=== PATIENT | female | born 1955 | race Two or more races ===

== ENCOUNTER 2017-07-22 23:34 | Inpatient (IN) | payer MEDICAID, OTHER ==
[~2017-07-22] VITALS: Ht 162.6 cm; Wt 84.0 kg
[~2017-07-22 23:34] MED LIST: ALBU8.5H3 INH; CETI10TA34 PO; GUAI118L94 PO; LEVO500T72 PO; PRED50TA PO; SIMV5TAB50 PO; [UNRECOGNIZED DRUG - OTHER]
[2017-07-22] MEDS ORDERED: ONDANSETRON 4 MG INJ IV STA (23:54)
[2017-07-22] MEDS ORDERED: morphine 4 MG/ML VIAL IV STA (23:54)
[2017-07-22] MEDS ORDERED: SOD CHLORIDE 0.9% 500 ML IV STA (23:54)
[2017-07-23 00:31] LABS: BASOPHILS % 0.2 % (0.0-2.0); EOSINOPHILS # 0.1 10^3/ul (0.0-0.5); EOSINOPHILS % 1.1 % (0.0-7.0); HEMATOCRIT 33.5 % (37.0-47.0); HEMOGLOBIN 11.6 g/dl (12.0-16.0); LYMPHOCYTES # 1.8 10^3/ul (0.8-2.9); LYMPHOCYTES % 41.4 % (15.0-51.0); MEAN CORPUSCULAR HEMOGLOBIN 31.9 pg (29.0-33.0); MEAN CORPUSCULAR HGB CONC 34.6 g/dl (32.0-37.0); MEAN PLATELET VOLUME 9.1 fl (7.4-10.4); MONOCYTE # 0.3 10^3/ul (0.3-0.9); MONOCYTES % 7.3 % (0.0-11.0); NEUTROPHIL # 2.2 10^3/ul (1.6-7.5); NEUTROPHILS % 49.8 % (39.0-77.0); PLATELET COUNT 154 10^3/UL (140-415); RED BLOOD COUNT 3.64 10^6/ul (4.20-5.40); RED CELL DISTRIBUTION WIDTH 13.7 % (11.5-14.5); WHITE BLOOD COUNT 4.4 10^3/ul (4.8-10.8)
[2017-07-23 00:53] LABS: ALBUMIN 4.4 g/dl (3.3-4.9); ALBUMIN/GLOBULIN RATIO 1.18; BILIRUBIN,INDIRECT 0.6 mg/dl (0-1.1); BILIRUBIN,TOTAL 0.6 mg/dl (0.2-1.3); CALCIUM 9.3 mg/dl (8.4-10.2); CREATININE 0.73 mg/dl (0.44-1.00); TOTAL PROTEIN 8.1 g/dl (6.1-8.1)
[2017-07-23 01:16] LABS: ADD UMIC YES; UR ASCORBIC ACID NEGATIVE (NEGATIVE); UR BACTERIA FEW /HPF (NONE SEEN); UR BILIRUBIN (Dip) NEGATIVE (NEGATIVE); UR BLOOD (Dip) 3+ mg/dL (NEGATIVE); UR BUDDING YEAST FEW /HPF (NONE SEEN); UR CLARITY TURBID (CLEAR); UR COLOR YELLOW (YELLOW); UR GLUCOSE (Dip) NEGATIVE (NEGATIVE); UR KETONES (Dip) NEGATIVE (NEGATIVE); UR LEUKOCYTE ESTERASE (Dip) 2+ Leu/ul (NEGATIVE); UR MUCUS FEW /HPF (NONE SEEN); UR NITRITE (Dip) NEGATIVE (NEGATIVE); UR RBC > 182 /HPF (0-5); UR SPECIFIC GRAVITY (Dip) 1.015 (1.003-1.030); UR TOTAL PROTEIN (Dip) 2+ mg/dl (NEGATIVE); UR UROBILINOGEN (Dip) NEGATIVE (NEGATIVE)
--- NOTE | 2017-07-23 01:39 | RADRPT ---
PROCEDURE: Renal US. CLINICAL INDICATION: Flank pain. TECHNIQUE: Multiple sonographic images of the kidneys and urinary bladder were obtained. The imag es were reviewed on a PACS workstation. COMPARISON: No prior studies are available for comparison. FINDINGS: The kidneys are well visualized. The right kidney measures 11.4 x 4.3 x 4.1 cm. There is no right hy dronephrosis per The left kidney measures 10.4 x 4.4 x 4.6 cm. There is mild left hydronephrosis wit h a left sided nephrostomy tube in place. A 5 mm nonobstructing stone is identified in the upper darlene e of the left kidney. The urinary bladder is unremarkable. IMPRESSION: 1. Mild left hydronephrosis with a left sided nephrostomy tube in place. 2. 5 mm nonobstructing left renal stone. 3. Normal appearance of the right kidney and urinary bladder. RPTAT: HTAR .Akhil Ceja MD, Date Time Electronically viewed and signed by .Akhil Ceja MD, on 07/23/2017 01:38 .R/
--- NOTE | 2017-07-23 02:29 | ERA ---
ER Documentation Chief Complaint Date/Time DATE: 07/23/17 TIME: 02:28 Chief Complaint flank pain with nephrostomy drain HPI 61-year-old female with history of obstructive urinary stone with nephrostomy tube in place comes in with flank pain on the side of her nephrostomy tube. Patient contacted her urologist Dr. Coyle and was told to come to [facility] for further evaluation management and possible admission. Flank pain started yesterday and is progressively worse. It was started off is mild and is now moderate in intensity. Mild associated nausea but no vomiting. No fevers no chills. No other current complaints. ROS All systems reviewed and are negative except as per history of present illness. Medications Home Meds Active Scripts Levofloxacin* (Levaquin*) 500 Mg Tablet, 500 MG PO DAILY for 7 Days, TAB Prov:DIANA CARLSON DIRECTOR OF [employer]UNTEER SERVICES 02/20/16 Prednisone* (Prednisone*) 50 Mg Tablet, 50 MG PO DAILY for 5 Days, TAB Prov:DIANA CARLSON NP 02/20/16 Cetirizine Hcl* (Cetirizine Hcl*) 10 Mg Tab.chew, 10 MG PO DAILY, #30 TAB Prov:DIANA CARLSON NP 02/20/16 Guaifenesin-Codeine Phosphate* (Guaifenesin* with Codeine Liq) 120 Ml Liquid, 5 ML PO Q4H for COUGH, #60 ML Prov:DINAA CARLSON NP 02/20/16 Albuterol Sulfate* (Proair HFA*) 8.5 Gm Hfa.aer.ad, 2 PUFF INH Q4H Y for WHEEZING AND SOB, #1 INHALER Prov:DIANA CARLSON NP 02/20/16 Reported Medications Simvastatin* (Simvastatin*) Unknown Strength Tablet, PO QHS, #30 TAB 02/19/16 [Hypothryoid] No Conflict Check 11/04/11 Allergies Allergies: Coded Allergies: No Known Allergy (Unverified , 07/23/17) PMhx/Soc Anesthesia Reaction: No Hx Neurological Disorder: No Hx Respiratory Disorders: No Hx Cardiac Disorders: Yes (high cholesterol, recent mi ) Hx Psychiatric Problems: No Hx Miscellaneous Medical Probl: No Hx Alcohol Use: No Hx Substance Use: No Hx Tobacco Use: No Smoking Status: Never smoker Physical Exam Vitals Vital Signs Date Time Temp Pulse Resp B/P Pulse Ox O2 Delivery O2 Flow Rate FiO2 07/22/17 23:40 98.3 83 20 111/69 95 Physical Exam Const: [] Head: Atraumatic Eyes: Normal Conjunctiva ENT: Normal External Ears, Nose and Mouth. Neck: Full range of motion..~ No meningismus. Resp: Clear to auscultation bilaterally Cardio: Regular rate and rhythm, no murmurs Abd: Soft, non tender, non distended. Normal bowel sounds Skin: No petechiae or rashes Back: No midline or flank tenderness Ext: No cyanosis, or edema Neur: Awake and alert Psych: Normal Mood and Affect Result Diagram: 07/23/17201607/23/172016 Results 24 hrs Laboratory Tests Test 07/23/17 00:00 07/23/17 00:01 Urine Color YELLOW Urine Clarity TURBID Urine pH 5.0 Urine Specific [place] 1.015 Urine Ketones NEGATIVEmg/dL Urine Nitrite NEGATIVEmg/dL Urine Bilirubin NEGATIVEmg/dL Urine Urobilinogen NEGATIVEmg/dL Urine Leukocyte Esterase 2+Kinsey/ul Urine Microscopic RBC > 182/HPF Urine Microscopic WBC 43/HPF Urine Bacteria FEW/HPF Urine Mucus FEW/HPF Urine Yeast (Budding) FEW/HPF Urine Hemoglobin 3+mg/dL Urine Glucose NEGATIVEmg/dL Urine Total Protein 2+mg/dl White Blood Count 4.410^3/ul Red Blood Count 3.6410^6/ul Hemoglobin 11.6g/dl Hematocrit 33.5% Mean Corpuscular Volume 92.0fl Mean Corpuscular Hemoglobin 31.9pg Mean Corpuscular Hemoglobin Concent 34.6g/dl Red Cell Distribution Width 13.7% Platelet Count 78313^3/UL Mean Platelet Volume 9.1fl Neutrophils % 49.8% Lymphocytes % 41.4% Monocytes % 7.3% Eosinophils % 1.1% Basophils % 0.2% Nucleated Red Blood Cells % 0.0/100WBC Neutrophils # 2.210^3/ul Lymphocytes # 1.810^3/ul Monocytes # 0.310^3/ul Eosinophils # 0.110^3/ul Basophils # 0.010^3/ul Nucleated Red Blood Cells # 0.010^3/ul Sodium Level 143mmol/L Potassium Level 4.0mmol/L Chloride Level 106mmol/L Carbon Dioxide Level 28mmol/L Anion Gap 13 Blood Urea Nitrogen 19mg/dl Creatinine 0.73mg/dl Glucose Level 117mg/dl Calcium Level 9.3mg/dl Total Bilirubin 0.6mg/dl Direct Bilirubin 0.00mg/dl Indirect Bilirubin 0.6mg/dl Aspartate Amino Transf (AST/SGOT) 20IU/L Alanine Aminotransferase (ALT/SGPT) 30IU/L Alkaline Phosphatase 90IU/L Total Protein 8.1g/dl Albumin 4.4g/dl Globulin 3.70g/dl Albumin/Globulin Ratio 1.18 Lipase 70U/L Current Medications Medications (Trade) Dose Ordered Sig/Renaldo Route PRN Reason Start Time Stop Time Status Last Admin Dose Admin Sodium Chloride (NS) 500 ml @ 500 mls/hr Q1H STAT IV 07/22/17 23:54 07/23/17 00:53 DC 07/23/17 00:10 Morphine Sulfate (morphine) 4 mg ONCE STAT IV 07/22/17 23:54 07/22/17 23:55 DC 07/23/17 00:09 Ondansetron HCl 4 mg 4 mg ONCE STAT IV 07/22/17 23:54 07/22/17 23:55 DC 07/23/17 00:10 Ceftriaxone Sodium (Rocephin) 50 ml @ 100 mls/hr ONCE ONCE IVPB 07/23/17 02:30 07/23/17 02:59 Procedures/MDM Medical decision-makin-year-old female nephrostomy tube and obvious infection in urine from nephrostomy tube. Started on Rocephin pending urine cultures. Pending patient will be admitted to hospitalist with urology consult. Departure Diagnosis: Primary Impression: Flank pain Condition: Serious GUZMAN SALCEDO Jul 23, 2017 02:29
[2017-07-23] MEDS ORDERED: CEFTRIAXONE 1 GM/50 ML (PMX) 50 ML IVPB ONE (02:30)
[2017-07-23] MEDS ORDERED: THY15 PO (02:32)
[2017-07-23] MEDS ORDERED: AMLO-147 PO (02:47)
[2017-07-23] MEDS ORDERED: LORA10TA3 PO (02:47)
[2017-07-23] MEDS ORDERED: TAMS0.4C2 PO (02:47)
[2017-07-23] MEDS ORDERED: FINA5TAB4 PO (02:47)
[2017-07-23] MEDS ORDERED: ASPI-664 PO (02:47)
[2017-07-23] MEDS ORDERED: ATOR80TA75 PO (02:47)
[2017-07-23 03:20] VITALS: PULSE 82; TEMP 98.3
[2017-07-23 03:44] VITALS: Ht 162.6 cm; Wt 84.0 kg
[2017-07-23] MEDS ORDERED: ACETAMINOPHEN 325 MG TAB PO PRN (06:00)
[2017-07-23] MEDS ORDERED: ONDANSETRON 4 MG INJ IV PRN (06:00)
[2017-07-23] MEDS ORDERED: NACL 0.9% 3 ML SYG IV SCH (06:00)
[2017-07-23] MEDS ORDERED: HYDROCODONE/APAP (5/325) TAB PO PRN ×2 (06:00)
--- NOTE | 2017-07-23 06:02 | HP ---
Date/Time of Note Date/Time of Note DATE: 07/23/17 TIME: 05:51 Assessment/Plan VTE Prophylaxis VTE Prophylaxis Intervention: SCD's Lines/Catheters IV [facility] Saline Lock Assessment/Plan Chief Complaint/Hosp Course This is a 61-year-old female being admitted to the [facility] floor for: #1 complicated urinary tract infection: Renal ultrasound shows left hydronephrosis and a urinalysis is positive for urinary tract infection. At the current time will treat with Levaquin IV. She received ceftriaxone in the ED. Will obtain urine culture. #2 nephrolithiasis: 5 mm nonobstructing kidney stone in the left kidney for renal ultrasound.. Patient currently has nephrostomy tube in place will contact urology for further management. Continue Flomax and finasteride. #3 hypertension: Stable we will continue home medications #4 hypothyroidism: We will check a TSH level. Patient does not recall her home dose will need to confirm with her daughter in the a.m. #5 hyperlipidemia: Continue statin. #6 DVT GI prophylaxis: SCDs, acid mariely Further treatment strategy will be implemented as per the clinical course Problems: HPI/ROS Admit Date/Time Admit Date/Time Jul 23, 2017 at 02:35 Hx of Present Illness Chief complaint: Left flank pain This is a 61-year-old female with history of obstructive urinary stone with nephrostomy tube in place comes in with flank pain on the side of her nephrostomy tube. Patient contacted her urologist Dr. Coyle and was told to come to [facility] for further evaluation management and possible admission. Flank pain started yesterday and is progressively worse. It was started off is mild and is now moderate in intensity. Mild associated nausea but no vomiting. No fevers no chills. No other current complaints. Allergies: NKDA Medications: See DEC ROS Const: As Per HPI Eyes : No pain discharge or redness or change in visual acuity ENT: No pain, sore throat, congestion, congestion, dysphagia or discharge Respiratory: No shortness of breath, cough, sputum, wheezing, or pleuritic pain Cardiovascular: No chest pain, palpitation, PND, or edema GI : no change in appetite, abdominal pain, nausea, vomiting, diarrhea, constipation, or change in the color his stool Genitourinary: As per HPI Musculoskeletal: No joint pain, back pain, neck pain, restricted range of motion in neck or joints Skin: No rash, bruising or hives Neuro: No headache, dizziness, syncope, seizure, focal weakness Endocrine: No polyuria, polydipsia, temperature intolerance Psych: No hallucination, depression, anxiety or suicidal ideation PMH/Family/Social Past Medical History Kidney stones, hypertension, hypothyroidism, hyperlipidemia Past Surgical History Left nephrostomy tube Family History Significant Family History: other (Kidney stones: Mom) Social History Alcohol Use: none Smoking Status: Never smoker Drug Use: none Exam/Review of Systems Vital Signs Vitals Vital Signs Date Time Temp Pulse Resp B/P Pulse Ox O2 Delivery O2 Flow Rate FiO2 07/23/17 03:20 98.3 82 20 124/81 98 Room Air Exam Exam General: Patient is well-developed well-nourished The patient is alert oriented -3 lying comfortably in bed. HEENT: Atraumatic, normocephalic. The pupils are equal, round and reactive. Extraocular motor are intact Neck: Supple with full range of motion. No rigidity or meningismus Chest: Nontender Lungs: Clear to auscultation bilaterally no crackles rales or wheezing Heart: Normal S1-S2, Regular rhythm and rate. No murmur, S3, or S4 Abdomen: Soft , nontender, nondistended , bowel sounds are present. No guarding no rebound tenderness , No masses or organomegaly. No costovertebral temporal angle mass Extremities: Normal to inspection, no edema no cyanosis Neurologic: Normal mental status, speech normal, cranial nerves II through XII are intact, motor and sensory are intact, no focal weakness Genitourinary: Left flank pain tenderness to palpation, nephrostomy tube draining adequately with no fluid extravasation from the insertion site. Urine appears mildly cloudy Additional Comments PROCEDURE: Renal US. CLINICAL INDICATION: Flank pain. TECHNIQUE: Multiple sonographic images of the kidneys and urinary bladder were obtained. The images were reviewed on a PACS workstation. COMPARISON: No prior studies are available for comparison. FINDINGS: The kidneys are well visualized. The right kidney measures 11.4 x 4.3 x 4.1 cm. There is no right hydronephrosis per The left kidney measures 10.4 x 4.4 x 4.6 cm. There is mild left hydronephrosis with a left sided nephrostomy tube in place. A 5 mm nonobstructing stone is identified in the upper pole of the left kidney. The urinary bladder is unremarkable. IMPRESSION: 1. Mild left hydronephrosis with a left sided nephrostomy tube in place. 2. 5 mm nonobstructing left renal stone. 3. Normal appearance of the right kidney and urinary bladder. RPTAT: HTAR .Akhil Ceja MD, MD Date Time Electronically viewed and signed by .Akhil Ceja MD, on 07/23/2017 01:38 .R/ CC: GUZMAN SALCEDO Labs Result Diagram: 07/23/17 0001 07/23/17 0001 AVI ALVARADO Jul 23, 2017 06:02
[2017-07-23] MEDS: SOD CHLORIDE 0.9% 1,000 ML IV SCH ×2 (06:14→20:44)
[2017-07-23 08:13] VITALS: BP 100/56; RESP 16
[2017-07-23] MEDS: LEVOFLOXACIN 750MG/D5W (PMX) 150 ML IVPB SCH (08:59)
[2017-07-23] MEDS: TAMSULOSIN (SR) 0.4 MG CAP PO SCH (09:00)
[2017-07-23] MEDS: LORATADINE 10 MG TAB PO SCH (09:00)
[2017-07-23] MEDS: FAMOTIDINE 20 MG TAB PO SCH ×2 (09:00→20:44)
[2017-07-23] MEDS: ASPIRIN (EC) 81 MG TAB PO SCH (09:00)
[2017-07-23] MEDS ORDERED: NON-FORMULARY/PATIENT OWN MED (Cetirizine Hcl* 10 MG) PO SCH (09:00)
[2017-07-23] MEDS: FINASTERIDE 5 MG TAB PO SCH (09:00)
[2017-07-23] MEDS: AMLODIPINE 10 MG TAB PO SCH (09:00)
[2017-07-23] MEDS ORDERED: IBUPROFEN 600 MG TAB PO ONE (13:30)
[2017-07-23 14:22] VITALS: BP 98/62; RESP 16
--- NOTE | 2017-07-23 14:26 | RADRPT ---
PROCEDURE: XR Abdomen. CLINICAL INDICATION: Abdominal pain TECHNIQUE: Supine and upright views of the abdomen were obtained. COMPARISON: None. FINDINGS: The bowel gas pattern is normal. There is no evidence of obstruction. The large bowel is stool-fille d. A left nephrostomy tube is seen. Cholecystectomy clips are identified. No free intraperitoneal ai r is seen. There are no abnormal calcifications overlying the urinary tracts. The osseous structure s are unremarkable. IMPRESSION: Nonobstructive bowel gas pattern. Left nephrostomy tube identified. RPTAT: HPNM Physician Azam Date Time Electronically viewed and signed by Physician Azam on 07/23/2017 14:25 /
--- NOTE | 2017-07-23 16:54 | CONS ---
Date/Time of Note Date/Time of Note DATE: 07/23/17 TIME: 16:34 Thank you for asking me to participate in this patient's care. 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 She has been on thyroid replacement therapy for the past 5 years. Initially levothyroxine followed by Sharmila meek. Her Most recent TSH is at 15. Additional Assessment/Plan Will dose thyroid replacement based on weight. Will increase dose up to 88mcg. Consultation Date/Type/Reason Admit Date/Time Jul 23, 2017 at 02:35 Date of Consultation: Jul 23, 2017 Type of Consultation: Endocrine Reason for Consultation Thyroid management Referring Provider: AVI ALVARADO Hx of Present Illness This is a 61-year-old female with a history of having an obstructive urinary stone with nephrostomy tube in placement. She presents to [facility] with flank pain on the side of her nephrostomy tube. She is admitted for further work up. I 've been asked to assist in management of her thyroid function. 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 Initially LT4 replacement then LT3/LT4 replacement back and forth. She has been followed at [facility] up until the past year. She has been taking a form of "leftover" thyroid replacement (her las dose being yesterday). Her TSH in hospital has been found to be 15. Family at bedside. [place] speaking woman. ROS and history obtained with assistance from daughter Eyes: no complaints ENT: no complaints Respiratory: no complaints Cardiovascular: no complaints Gastrointestinal: other, pain (left flank pain) Genitourinary: flank pain Musculoskeletal: no complaints Skin: no complaints Neurologic: no complaints Endocrine: no complaints Lymphatic: no complaints Psychological: no complaints Immunologic: no complaints Past Medical History Medical History: other (Toxic nodular goiter, surgical induced hypothyroidism, oligoastrocytoma of the left frontal lobe, nephrolithiasis) Past Surgical History Past Surgical Hx: no surgical history (partial thyroidectomy), other (Partial thyroidecttomy, craniotomy without tumor resection, left nephrostomy tube) Family History Significant Family History: other (nephrolithiasis) Social History Alcohol Use: none Smoking Status: Never smoker Drug Use: none Other Social History [place] born. Lives with . Has 2 daughters. Exam/Review of Systems Vital Signs Vitals Vital Signs Date Time Temp Pulse Resp B/P Pulse Ox O2 Delivery O2 Flow Rate FiO2 07/23/17 14:22 98.1 71 16 98/62 91 07/23/17 03:20 Room Air Exam Constitutional: alert, obese, oriented, well developed Head: normocephalic Eyes: EOMI, PERRL, nl conjunctiva Neck: supple Respiratory: clear to auscultation, normal air movement Cardiovascular: nl pulses, regular rate and rhythm Gastrointestinal: non-tender, soft Genitourinary - Female: nl adnexae Musculoskeletal: nl extremities to inspection Extremities: normal pulses Neurological: nl mental status, nl speech, nl strength Results Labs reviewed Result Diagram: 07/23/17 0001 07/23/17 0001 Results 24 hrs Laboratory Tests Test 07/23/17 00:00 07/23/17 00:01 07/23/17 08:27 Urine Color YELLOW Urine Clarity TURBID A Urine pH 5.0 Urine Specific [place] 1.015 Urine Ketones NEGATIVE Urine Nitrite NEGATIVE Urine Bilirubin NEGATIVE Urine Urobilinogen NEGATIVE Urine Leukocyte Esterase 2+ H Urine Microscopic RBC > 182 H Urine Microscopic WBC 43 H Urine Bacteria FEW A Urine Mucus FEW A Urine Yeast (Budding) FEW A Urine Hemoglobin 3+ H Urine Glucose NEGATIVE Urine Total Protein 2+ H White Blood Count 4.4 #L Red Blood Count 3.64 L Hemoglobin 11.6 L Hematocrit 33.5 L Mean Corpuscular Volume 92.0 Mean Corpuscular Hemoglobin 31.9 Mean Corpuscular Hemoglobin Concent 34.6 Red Cell Distribution Width 13.7 Platelet Count 154 Mean Platelet Volume 9.1 # Neutrophils % 49.8 Lymphocytes % 41.4 Monocytes % 7.3 Eosinophils % 1.1 Basophils % 0.2 Nucleated Red Blood Cells % 0.0 Neutrophils # 2.2 Lymphocytes # 1.8 Monocytes # 0.3 Eosinophils # 0.1 Basophils # 0.0 Nucleated Red Blood Cells # 0.0 Sodium Level 143 Potassium Level 4.0 Chloride Level 106 Carbon Dioxide Level 28 Anion Gap 13 Blood Urea Nitrogen 19 Creatinine 0.73 Glucose Level 117 Calcium Level 9.3 Total Bilirubin 0.6 Direct Bilirubin 0.00 Indirect Bilirubin 0.6 Aspartate Amino Transf (AST/SGOT) 20 Alanine Aminotransferase (ALT/SGPT) 30 Alkaline Phosphatase 90 Total Protein 8.1 Albumin 4.4 Globulin 3.70 H Albumin/Globulin Ratio 1.18 Lipase 70 Free Thyroxine 0.51 L Hemoglobin A1c 5.2 Magnesium Level 2.0 Thyroid Stimulating Hormone (TSH) 15.000 H Medications Medications Current Medications Sodium Chloride (NS) 1,000 ml @ 70 mls/hr [id number] IV Last administered on 07/23 06:14; Admin Dose 70 MLS/HR; Start 07/23/17 at 05:53 Ondansetron HCl (Zofran Inj) 4 mg Q6H PRN IV NAUSEA AND/OR VOMITING; Start 07/23/17 at 06:00 Acetaminophen (Tylenol Tab) 650 mg Q6H PRN PO PAIN LEVEL 1-3 OR FEVER Last administered on 07/23/17 09:11; Admin Dose 650 MG; Start 07/23/17 at 06:00 Acetaminophen/ Hydrocodone Bitart (Spelter (5/325)) 1 tab Q6H PRN PO MODERATE PAIN LEVEL 4-6; Start 07/23/17 at 06:00 Acetaminophen/ Hydrocodone Bitart (Spelter (5/325)) 2 tab Q6H PRN PO SEVERE PAIN LEVEL 7-10; Start 07/23/17 at 06:00 Famotidine (Pepcid) 20 mg Q12 PO Last administered on 07/23/17 09:00; Admin Dose 20 MG; Start 07/23/17 at 09:00 Amlodipine Besylate (Norvasc) 10 mg DAILY PO Last administered on 07/23/17 09: 00; Admin Dose 10 MG; Start 07/23/17 at 09:00 Aspirin (Halfprin) 81 mg DAILY PO Last administered on 07/23/17 09:00; Admin Dose 81 MG; Start 07/23/17 at 09:00 Atorvastatin Calcium (Lipitor) 80 mg QHS PO ; Start 07/23/17 at 21:00 Finasteride (Proscar) 5 mg DAILY PO Last administered on 07/23/17 09:00; Admin Dose 5 MG; Start 07/23/17 at 09:00 Loratadine (Claritin) 10 mg DAILY PO Last administered on 07/23/17 09:00; Admin Dose 10 MG; Start 07/23/17 at 09:00 Tamsulosin HCl 0.4 mg 0.4 mg DAILY PO Last administered on 07/23/17 09:00; Admin Dose 0.4 MG; Start 07/23/17 at 09:00 Levofloxacin/ Dextrose (Levaquin 750 Mg/ D5W 150 ml (Pmx)) 150 ml @ 100 mls/hr Q24H IVPB Last administered on 07/23/17 08:59; Admin Dose 100 MLS/HR; Start 07/23/17 at 06:00 Levothyroxine Sodium (Synthroid) 50 mcg DAILY@06 PO ; Start 07/24/17 at 06:00 RONALD FRANCOIS MD Jul 23, 2017 16:47
[2017-07-23 19:50] VITALS: BP 121/70; RESP 18
[2017-07-23] MEDS: ATORVASTATIN 80 MG TAB PO SCH (20:44)
--- NOTE | 2017-07-23 20:52 | HP ---
DATE OF ADMISSION: 07/23/2017 REQUESTING PHYSICIAN: Erickson Villagomez MD HISTORY OF PRESENT ILLNESS: This patient is a 61-year-old female who is known to me. I have seen her in the office before and I was planning to admit her as an outpatient for cystoscopy and left ureteropyeloscopy. Initially, the patient had presented to another hospital a few weeks back and she was septic at that time, and that was because of a stone at the left ureteropelvic junction causing her obstruction and septicemia. Because of that, the patient had a nephrostomy tube put in and she was treated with antibiotic and when she was stable she was sent home. Patient was referred to me after that and at the time I saw her I did a KUB and could not see the stone on the KUB. Therefore, I ordered a CT scan of the abdomen and pelvis to see if we could see the stone. On the CT scan of the abdomen and pelvis, the radiologist thought he sees a stone in the left kidney next to the nephrostomy tube. However, I reviewed the x- rays with him. He was not sure of the findings. Therefore, I talked to the patient and her daughter, and we were planning on doing a cystoscopy and ureteroscopy and try to see in the kidney if we could see the stone and then take it out. However, the patient has been having pain from the nephrostomy and she was calling me almost every day in the past few days complaining of the pain. I told her basically that we are just awaiting for the authorization, however, as the pain persisted, I told her therefore if she has continuous pain and she is not getting relief, therefore it is better that she goes to the emergency room and then be admitted and then we could take care of her stone and the nephrostomy tube while she is in the hospital. So last night, she presented to the emergency room because of the pain. She did have a renal ultrasound and renal ultrasound was reported as they see a 5 mm stone in the upper pole of the left kidney. Again, I had her repeat a KUB today and we cannot see the stone on the plain film. 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 The patient also has a partial thyroidectomy, and it causing her to be hypothyroid, and she is on thyroid replacement therapy. She does not smoke, does not drink any alcohol, and there is no history of drug abuse. PHYSICAL EXAMINATION: GENERAL: Reveals an elderly female who is presently in no acute distress. She is reasonably comfortable. VITAL SIGNS: Her temperature is 97.9, pulse is 70, respirations 16, blood pressure 100/56. NECK: Supple. CHEST: Normal. ABDOMEN: Soft. She does have tenderness in the left side and tenderness around the nephrostomy tube which is draining clear urine. EXTREMITIES: Normal. LABORATORY DATA: Her CBC shows a white count of 4.4, hemoglobin 11.6, hematocrit 33.5, platelet count is 154,000. BUN 19, creatinine 0.73. Electrolytes are normal. The urine culture, no growth after 24 hours, but that urine culture is a voided urine not from the nephrostomy tube. IMPRESSION: History of left renal stone at the left ureteropelvic junction causing obstruction, hydronephrosis and septicemia. Patient is status post left nephrostomy tube insertion. PLAN: Plan is to do a cystoscopy and do left ureteroscopy and pyeloscopy, laser lithotripsy, and put a JJ stent on the left side, and then take the nephrostomy tube out. If I am able to go up the ureter and do the ureteroscopy, then will try to get the stone. If I am not able to go up the ureter because the ureter is too narrowed, then we will put a JJ stent, allow the JJ stent to dilate the ureter and a few weeks later bring her back in and do the ureteroscopy, and we will remove the nephrostomy tube as that is bothering her. Also, I was hoping that if we were able to see the stone on plain films since it is a small stone, one could do extracorporeal shockwave lithotripsy but yet I could not see the stone on the plain film. Therefore, decided to do the ureteroscopy and pyeloscopy and see if we could visually see the stone and take care of it. I have explained all of these findings to her, her family, her daughter who was at her bedside, and showed them the pictures as well. I explained to them what we can do and what the potential result could be, the benefits, risks, and the possible need for multiple procedures. They all understood and she is agreeable to proceed. She is scheduled for tomorrow at 5:30 p.m. Dictated By: Victor M Mckeon MD /nirmal/lorraine /Document#: [id number] MTDD
[2017-07-24 02:31] VITALS: BP 99/55; RESP 20
[2017-07-24] MEDS: LEVOFLOXACIN 750MG/D5W (PMX) 150 ML IVPB SCH (05:51)
[2017-07-24] MEDS: LEVOTHYROXINE 88 MCG TAB PO SCH (05:52)
[2017-07-24] MEDS ORDERED: LEVOTHYROXINE 50 MCG TAB PO SCH (06:00)
[2017-07-24 06:12] LABS: BASOPHILS % 0.3 % (0.0-2.0); EOSINOPHILS # 0.1 10^3/ul (0.0-0.5); HEMATOCRIT 32.6 % (37.0-47.0); LYMPHOCYTES # 1.5 10^3/ul (0.8-2.9); LYMPHOCYTES % 42.9 % (15.0-51.0); MEAN CORPUSCULAR HEMOGLOBIN 31.7 pg (29.0-33.0); MEAN CORPUSCULAR HGB CONC 33.7 g/dl (32.0-37.0); MEAN CORPUSCULAR VOLUME 93.9 fl (82.0-101.0); MEAN PLATELET VOLUME 9.2 fl (7.4-10.4); MONOCYTE # 0.2 10^3/ul (0.3-0.9); MONOCYTES % 5.7 % (0.0-11.0); NEUTROPHIL # 1.7 10^3/ul (1.6-7.5); NEUTROPHILS % 48.8 % (39.0-77.0); PLATELET COUNT 142 10^3/UL (140-415); RED BLOOD COUNT 3.47 10^6/ul (4.20-5.40); RED CELL DISTRIBUTION WIDTH 13.6 % (11.5-14.5); WHITE BLOOD COUNT 3.5 10^3/ul (4.8-10.8)
[2017-07-24 06:33] LABS: PROTIME 13.2 Sec (12.2-14.2)
[2017-07-24 06:34] LABS: PARTIAL THROMBOPLASTIN TIME 28.5 Sec (25.0-35.0)
[2017-07-24 06:48] LABS: PHOSPHORUS 4.5 mg/dl (2.5-4.9)
[2017-07-24 06:49] LABS: ALBUMIN 3.9 g/dl (3.3-4.9); ALBUMIN/GLOBULIN RATIO 1.25; BILIRUBIN,INDIRECT 0.6 mg/dl (0-1.1); BILIRUBIN,TOTAL 0.6 mg/dl (0.2-1.3); CALCIUM 8.8 mg/dl (8.4-10.2); CREATININE 0.82 mg/dl (0.44-1.00); POTASSIUM 4.1 mmol/L (3.5-5.1)
--- NOTE | 2017-07-24 07:36 | RADRPT ---
PROCEDURE: XR Chest. CLINICAL INDICATION: Preop TECHNIQUE: AP Portable chest. COMPARISON: 02/19/2016 FINDINGS: There is breast artifact. The cardiac silhouette is enlarged. The aortic arch is calcified. The left costophrenic angle is obs cured by overlying soft tissue. Linear scarring or atelectasis is seen in the left lower lung. The osseous structures are intact. IMPRESSION: Left lower lobe linear scarring or atelectasis. Cardiomegaly. Aortic atherosclerosis. Physician Alonzo Date Time Electronically viewed and signed by Ruth Medley Physician on 07/24/2017 07:36 CS/
[2017-07-24 07:39] VITALS: BP 117/71; RESP 18
[2017-07-24] MEDS: LORATADINE 10 MG TAB PO SCH (08:27)
[2017-07-24] MEDS: TAMSULOSIN (SR) 0.4 MG CAP PO SCH (08:27)
[2017-07-24] MEDS: ASPIRIN (EC) 81 MG TAB PO SCH (08:28)
[2017-07-24] MEDS: AMLODIPINE 10 MG TAB PO SCH (08:28)
[2017-07-24] MEDS: FAMOTIDINE 20 MG TAB PO SCH ×2 (08:28→21:37)
[2017-07-24] MEDS: FINASTERIDE 5 MG TAB PO SCH (08:29)
--- NOTE | 2017-07-24 09:43 | PN ---
Date/Time of Note Date/Time of Note DATE: 07/24/17 TIME: 09:40 Assessment/Plan VTE Prophylaxis VTE Prophylaxis Intervention: SCD's Lines/Catheters IV C[facility]ter Type (from [facility] Peripheral IV Assessment/Plan Chief Complaint/Hosp Course 1. Nephrolithiasis. Renal ultrasound showing 5 mm nonobstructing kidney stone. The patient already has a left nephrostomy tube in place. The patient is scheduled for a cystoscopy with possible laser lithotripsy and insertion of a left ureteral JJ stent with removal of left nephrostomy tube. 2. Positive urinalysis. Urine cultures negative so far. On antibiotics as per Urology recommendations. 3. Hypothyroidism. Continue Synthroid. Endocrinology following the patient. 4. 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 5. Dyslipidemia. Continue statins. 6. Essential hypertension. Continue antihypertensives. 7. Fluids, electrolytes, and nutrition. N.p.o. for procedure. Continue IV hydration. 8. DVT prophylaxis. Bilateral sequential compression devices. 9. Plan. Await urological intervention. Continue IV fluids. Continue antibiotics. Case discussed with Dr. Martin. Problems: Subjective 24 Hr Interval Summary Free Text/Dictation Denies any pain at the nephrostomy site. Remains afebrile. Exam/Review of Systems Vital Signs Vitals Vital Signs Date Time Temp Pulse Resp B/P Pulse Ox O2 Delivery O2 Flow Rate FiO2 07/24/17 07:39 98.5 86 18 117/71 96 07/23/17 03:20 Room Air Intake and Output 07/23/17 07/23/17 07/24/17 15:00 23:00 07:00 Intake Total 2270 ml 1030 ml Balance 2270 ml 1030 ml Exam General: Obese 61 year-old female lying in bed in no apparent distress. HEENT: Normocephalic, atraumatic. Eyes: Anicteric sclerae, conjunctivae clear. ENT: Nasal septum midline, oral mucosa moist. Neck supple, no JVD noticed. Respiratory: Bilaterally clear breath sounds. No use of accessory muscles of respiration. No adventitious breath sounds. Cardiovascular: S1, S2 heard. No murmurs or gallops. Abdomen: Soft, nontender, and nondistended. Bowel sounds positive in all 4 quadrants. Genitourinary: Left flank nephrostomy. Extremities: No cyanosis, no clubbing, no edema. Peripheral pulses palpable. Neurologic: Cranial nerves II through XII grossly intact. The patient is awake, alert, and oriented. Skin: Normal skin turgor. No skin rashes. Results Result Diagram: 07/24/17 0540 07/24/17 0541 Results 24 hrs Laboratory Tests Test 07/24/17 05:40 07/24/17 05:41 White Blood Count 3.5 #L Red Blood Count 3.47 L Hemoglobin 11.0 L Hematocrit 32.6 L Mean Corpuscular Volume 93.9 Mean Corpuscular Hemoglobin 31.7 Mean Corpuscular Hemoglobin Concent 33.7 Red Cell Distribution Width 13.6 Platelet Count 142 Mean Platelet Volume 9.2 Neutrophils % 48.8 Lymphocytes % 42.9 Monocytes % 5.7 Eosinophils % 2.0 Basophils % 0.3 Nucleated Red Blood Cells % 0.0 Neutrophils # 1.7 Lymphocytes # 1.5 Monocytes # 0.2 L Eosinophils # 0.1 Basophils # 0.0 Nucleated Red Blood Cells # 0.0 Phosphorus Level 4.5 Magnesium Level 2.0 Prothrombin Time 13.2 Prothrombin Time Ratio 1.0 INR International Normalized Ratio 1.00 Activated Partial Thromboplast Time 28.5 Sodium Level 146 H Potassium Level 4.1 Chloride Level 109 Carbon Dioxide Level 29 Anion Gap 12 Blood Urea Nitrogen 12 Creatinine 0.82 Glucose Level 93 Calcium Level 8.8 Total Bilirubin 0.6 Direct Bilirubin 0.00 Indirect Bilirubin 0.6 Aspartate Amino Transf (AST/SGOT) 16 Alanine Aminotransferase (ALT/SGPT) 29 Alkaline Phosphatase 68 Total Protein 7.0 # Albumin 3.9 Globulin 3.10 Albumin/Globulin Ratio 1.25 Medications Medications Current Medications Sodium Chloride (NS) 1,000 ml @ 70 mls/hr [id number] IV Last administered on 07/23 20:44; Admin Dose 70 MLS/HR; Start 07/23/17 at 05:53 Ondansetron HCl (Zofran Inj) 4 mg Q6H PRN IV NAUSEA AND/OR VOMITING; Start 07/23/17 at 06:00 Acetaminophen (Tylenol Tab) 650 mg Q6H PRN PO PAIN LEVEL 1-3 OR FEVER Last administered on 07/23/17 09:11; Admin Dose 650 MG; Start 07/23/17 at 06:00 Acetaminophen/ Hydrocodone Bitart ([place] (5/325)) 1 tab Q6H PRN PO MODERATE PAIN LEVEL 4-6; Start 07/23/17 at 06:00 Acetaminophen/ Hydrocodone Bitart ([place] (5/325)) 2 tab Q6H PRN PO SEVERE PAIN LEVEL 7-10; Start 07/23/17 at 06:00 Famotidine (Pepcid) 20 mg Q12 PO Last administered on 07/24/17 08:28; Admin Dose 20 MG; Start 07/23/17 at 09:00 Amlodipine Besylate (Norvasc) 10 mg DAILY PO Last administered on 07/24/17 08: 28; Admin Dose 10 MG; Start 07/23/17 at 09:00 Aspirin (Halfprin) 81 mg DAILY PO Last administered on 07/23/17 09:00; Admin Dose 81 MG; Start 07/23/17 at 09:00 Atorvastatin Calcium (Lipitor) 80 mg QHS PO Last administered on 07/23/17 20: 44; Admin Dose 80 MG; Start 07/23/17 at 21:00 Finasteride (Proscar) 5 mg DAILY PO Last administered on 07/24/17 08:29; Admin Dose 5 MG; Start 07/23/17 at 09:00 Loratadine (Claritin) 10 mg DAILY PO Last administered on 07/24/17 08:27; Admin Dose 10 MG; Start 07/23/17 at 09:00 Tamsulosin HCl 0.4 mg 0.4 mg DAILY PO Last administered on 07/24/17 08:27; Admin Dose 0.4 MG; Start 07/23/17 at 09:00 Levofloxacin/ Dextrose (Levaquin 750 Mg/ D5W 150 ml (Pmx)) 150 ml @ 100 mls/hr Q24H IVPB Last administered on 07/24/17 05:51; Admin Dose 100 MLS/HR; Start 07/23/17 at 06:00 Levothyroxine Sodium (Synthroid) 88 mcg DAILY@06 PO Last administered on 05:52; Admin Dose 88 MCG; Start 07/24/17 at 06:00 AZEB REILLY NP Jul 24, 2017 09:43
[2017-07-24] MEDS: SOD CHLORIDE 0.9% 1,000 ML IV SCH ×2 (10:29→13:14)
[2017-07-24 14:21] VITALS: BP 123/64; RESP 18
[2017-07-24 19:27] VITALS: BP 105/65; RESP 20
[2017-07-24] MEDS: ATORVASTATIN 80 MG TAB PO SCH (21:37)
[2017-07-25] MEDS: SOD CHLORIDE 0.9% 1,000 ML IV SCH (01:47)
[2017-07-25 02:00] VITALS: BP 105/61; RESP 20
[2017-07-25 06:14] LABS: BASOPHILS % 0.2 % (0.0-2.0); EOSINOPHILS # 0.1 10^3/ul (0.0-0.5); EOSINOPHILS % 1.5 % (0.0-7.0); HEMATOCRIT 33.5 % (37.0-47.0); HEMOGLOBIN 11.3 g/dl (12.0-16.0); LYMPHOCYTES # 1.9 10^3/ul (0.8-2.9); LYMPHOCYTES % 42.1 % (15.0-51.0); MEAN CORPUSCULAR HEMOGLOBIN 31.3 pg (29.0-33.0); MEAN CORPUSCULAR HGB CONC 33.7 g/dl (32.0-37.0); MEAN CORPUSCULAR VOLUME 92.8 fl (82.0-101.0); MEAN PLATELET VOLUME 9.3 fl (7.4-10.4); MONOCYTE # 0.3 10^3/ul (0.3-0.9); MONOCYTES % 7.5 % (0.0-11.0); NEUTROPHIL # 2.2 10^3/ul (1.6-7.5); NEUTROPHILS % 48.5 % (39.0-77.0); PLATELET COUNT 151 10^3/UL (140-415); RED BLOOD COUNT 3.61 10^6/ul (4.20-5.40); RED CELL DISTRIBUTION WIDTH 13.5 % (11.5-14.5); WHITE BLOOD COUNT 4.5 10^3/ul (4.8-10.8)
[2017-07-25] MEDS: LEVOFLOXACIN 750MG/D5W (PMX) 150 ML IVPB SCH (06:33)
[2017-07-25] MEDS: LEVOTHYROXINE 88 MCG TAB PO SCH (06:33)
[2017-07-25 06:55] LABS: ALBUMIN/GLOBULIN RATIO 1.33; CALCIUM 8.6 mg/dl (8.4-10.2); CREATININE 0.79 mg/dl (0.44-1.00); POTASSIUM 3.7 mmol/L (3.5-5.1)
[2017-07-25 07:03] LABS: CHOL/HDL RATIO 3.3 RATIO; PHOSPHORUS 4.5 mg/dl (2.5-4.9)
[2017-07-25 07:48] VITALS: BP 102/59; RESP 18
[2017-07-25] MEDS: TAMSULOSIN (SR) 0.4 MG CAP PO SCH (08:43)
[2017-07-25] MEDS: FAMOTIDINE 20 MG TAB PO SCH (08:44)
[2017-07-25] MEDS: AMLODIPINE 10 MG TAB PO SCH (08:44)
[2017-07-25] MEDS: ASPIRIN (EC) 81 MG TAB PO SCH (08:44)
[2017-07-25] MEDS: LORATADINE 10 MG TAB PO SCH (08:44)
[2017-07-25] MEDS: FINASTERIDE 5 MG TAB PO SCH (08:45)
--- NOTE | 2017-07-25 09:24 | RADRPT ---
Vent Rate: 61 bpm RR Interval: 0 msec AL Interval: 218 msec QRS Duration: 80 msec QT Interval: 410 msec QTC Interval: 412 msec P-R-T [place]: 71 - 43 - 64 degrees Sinus rhythm with 1st degree AV block with premature supraventricular complexes Low voltage QRS Nonspecific T wave abnormality Abnormal ECG Electronically Signed By: Jasson Coates [id number]
--- NOTE | 2017-07-25 09:28 | RADRPT ---
Vent Rate: 72 bpm RR Interval: 0 msec NE Interval: 226 msec QRS Duration: 80 msec QT Interval: 416 msec QTC Interval: 455 msec P-R-T [place]: 69 - 48 - 65 degrees Sinus rhythm with 1st degree AV block and ? sinus arrythmia Low voltage QRS Nonspecific T wave abnormality Abnormal ECG Electronically Signed By: Jasson Coates [id number]
--- NOTE | 2017-07-25 10:48 | PN ---
Date/Time of Note Date/Time of Note DATE: 07/25/17 TIME: 10:46 Assessment/Plan VTE Prophylaxis VTE Prophylaxis Intervention: LMWH Lines/Catheters IV Catheter Type (from Nrs): Peripheral IV Subjective 24 Hr Interval Summary Free Text/Dictation I spoke wtih Dr Adams from urology and explained the patien'ts case to him. He said the patient needs to see a urologist that is within her HMO. He does not accect her insurance. Furthermore, he said that this is not an emergency so there is no urgent indication for her to be seen by him. He recommends she have the procedure w Dr Mckeon or else be discharged and find another urologist Exam/Review of Systems Vital Signs Vitals Vital Signs Date Time Temp Pulse Resp B/P Pulse Ox O2 Delivery O2 Flow Rate FiO2 07/25/17 07:48 98.7 86 18 102/59 96 07/23/17 03:20 Room Air Intake and Output 07/24/17 07/24/17 07/25/17 15:00 23:00 07:00 Intake Total 520 ml 720 ml 1520 ml Output Total 110 ml Balance 520 ml 610 ml 1520 ml Results Result Diagram: 07/25/17 0546 07/25/17 0553 Results 24 hrs Laboratory Tests Test 07/25/17 05:46 07/25/17 05:53 White Blood Count 4.5 #L Red Blood Count 3.61 L Hemoglobin 11.3 L Hematocrit 33.5 L Mean Corpuscular Volume 92.8 Mean Corpuscular Hemoglobin 31.3 Mean Corpuscular Hemoglobin Concent 33.7 Red Cell Distribution Width 13.5 Platelet Count 151 Mean Platelet Volume 9.3 Neutrophils % 48.5 Lymphocytes % 42.1 Monocytes % 7.5 Eosinophils % 1.5 Basophils % 0.2 Nucleated Red Blood Cells % 0.0 Neutrophils # 2.2 Lymphocytes # 1.9 Monocytes # 0.3 Eosinophils # 0.1 Basophils # 0.0 Nucleated Red Blood Cells # 0.0 Sodium Level 146 H Potassium Level 3.7 Chloride Level 108 Carbon Dioxide Level 28 Anion Gap 14 Blood Urea Nitrogen 12 Creatinine 0.79 Glucose Level 86 Calcium Level 8.6 Phosphorus Level 4.5 Magnesium Level 2.0 Total Bilirubin 1.0 Direct Bilirubin 0.00 Indirect Bilirubin 1.0 Aspartate Amino Transf (AST/SGOT) 16 Alanine Aminotransferase (ALT/SGPT) 29 Alkaline Phosphatase 72 Total Protein 7.0 Albumin 4.0 Globulin 3.00 Albumin/Globulin Ratio 1.33 Triglycerides Level 122 Cholesterol Level 125 LDL Cholesterol, Calculated 64 HDL Cholesterol 37 Cholesterol/HDL Ratio 3.3 Medications Medications Current Medications Sodium Chloride (NS) 1,000 ml @ 70 mls/hr [id number] IV Last administered on 07/25 01:47; Admin Dose 70 MLS/HR; Start 07/23/17 at 05:53 Ondansetron HCl (Zofran Inj) 4 mg Q6H PRN IV NAUSEA AND/OR VOMITING; Start 07/23/17 at 06:00 Acetaminophen (Tylenol Tab) 650 mg Q6H PRN PO PAIN LEVEL 1-3 OR FEVER Last administered on 07/23/17 09:11; Admin Dose 650 MG; Start 07/23/17 at 06:00 Acetaminophen/ Hydrocodone Bitart ([place] (5/325)) 1 tab Q6H PRN PO MODERATE PAIN LEVEL 4-6; Start 07/23/17 at 06:00 Acetaminophen/ Hydrocodone Bitart ([place] (5/325)) 2 tab Q6H PRN PO SEVERE PAIN LEVEL 7-10; Start 07/23/17 at 06:00 Famotidine (Pepcid) 20 mg Q12 PO Last administered on 07/25/17 08:44; Admin Dose 20 MG; Start 07/23/17 at 09:00 Amlodipine Besylate (Norvasc) 10 mg DAILY PO Last administered on 07/25/17 08: 44; Admin Dose 10 MG; Start 07/23/17 at 09:00 Aspirin (Halfprin) 81 mg DAILY PO Last administered on 07/25/17 08:44; Admin Dose 81 MG; Start 07/23/17 at 09:00 Atorvastatin Calcium (Lipitor) 80 mg QHS PO Last administered on 07/24/17 21: 37; Admin Dose 80 MG; Start 07/23/17 at 21:00 Finasteride (Proscar) 5 mg DAILY PO Last administered on 07/25/17 08:45; Admin Dose 5 MG; Start 07/23/17 at 09:00 Loratadine (Claritin) 10 mg DAILY PO Last administered on 07/25/17 08:44; Admin Dose 10 MG; Start 07/23/17 at 09:00 Tamsulosin HCl 0.4 mg 0.4 mg DAILY PO Last administered on 07/25/17 08:43; Admin Dose 0.4 MG; Start 07/23/17 at 09:00 Levofloxacin/ Dextrose (Levaquin 750 Mg/ D5W 150 ml (Pmx)) 150 ml @ 100 mls/hr Q24H IVPB Last administered on 07/25/17 06:33; Admin Dose 100 MLS/HR; Start 07/23/17 at 06:00 Levothyroxine Sodium (Synthroid) 88 mcg DAILY@06 PO Last administered on 06:33; Admin Dose 88 MCG; Start 07/24/17 at 06:00 REHANA CORONA MD Jul 25, 2017 10:48
--- NOTE | 2017-07-25 12:10 | PDOCDIS ---
Discharge Instructions DIAGNOSIS Discharge Diagnosis Nephrolithiasis CONDITION Patient Condition: Good HOME CARE INSTRUCTIONS: Special Diet: low cholesterol FOLLOW UP/APPOINTMENTS Follow-up Plan You should seek medical care at a larger hospital with a larger urology department for a second opinion REHANA CORONA MD Jul 25, 2017 12:10
--- NOTE | 2017-07-25 15:18 | DS ---
Date/Time of Note Date/Time of Note DATE: 07/25/17 TIME: 15:16 Discharge Summary Admission/Discharge Info Admit Date/Time Jul 23, 2017 at 02:35 Discharge Date/Time Jul 25, 2017 at 13:10 Discharge Diagnosis Nephrolithiasis Patient Condition: Fair Hx of Present Illness Chief complaint: Left flank pain This is a 61-year-old female with history of obstructive urinary stone with nephrostomy tube in place comes in with flank pain on the side of her nephrostomy tube. Patient contacted her urologist Dr. Coyle and was told to come to [facility] for further evaluation management and possible admission. Flank pain started yesterday and is progressively worse. It was started off is mild and is now moderate in intensity. Mild associated nausea but no vomiting. No fevers no chills. No other current complaints. Allergies: NKDA Medications: See [facility] Hospital Course 1. Nephrolithiasis. Renal ultrasound showing 5 mm nonobstructing kidney stone. The patient already has a left nephrostomy tube in place. The patient was seen by Dr Wilkinson and scheduled for a cystoscopy with possible laser lithotripsy and insertion of a left ureteral JJ stent with removal of left nephrostomy tube. (see his excellent dictation of the case). The patient however requested a second opinion. I tried to arrange a 2nd opinion with Dr Adams. However, he did not feel inpatient evaluation was indicated. He recommended she be discharged and arranged for 2nd opinion via O. I presented this to the patient and her daughter who then requested that the patient be discharged and they will go to another hospital for further managemetnt Home Meds Active Scripts Cetirizine Hcl* (Cetirizine Hcl*) 10 Mg Tab.chew, 10 MG PO DAILY, #30 TAB Prov:DIANA CARLSON NP 02/20/16 Reported Medications Atorvastatin* (Atorvastatin*) 80 Mg Tablet, 80 MG PO QHS, #30 TAB 07/23/17 Finasteride* (Finasteride*) 5 Mg Tablet, 5 MG PO DAILY, TAB 07/23/17 Tamsulosin Hcl* (Tamsulosin Hcl*) 0.4 Mg Cap.er.24h, 0.4 MG PO DAILY, CAP 07/23/17 Loratadine* (Loratadine*) 10 Mg Tablet, 10 MG PO DAILY, #30 TAB TAKE 1 TABLET BY MOUTH DAILY NEEDED FOR ALLERGY SYMPTOMS 07/23/17 Aspirin* (Aspirin* EC) 81 Mg Tablet.dr, 81 MG PO DAILY, TAB 07/23/17 Amlodipine Besylate* (Amlodipine Besylate*) 10 Mg Tablet, 10 MG PO DAILY, #30 TAB 07/23/17 Thyroid* ([place] Thyroid*) Unknown Strength Tab, PO DAILY, TAB 07/23/17 Discontinued Reported Medications Simvastatin* (Simvastatin*) Unknown Strength Tablet, PO QHS, #30 TAB 02/19/16 [Hypothryoid] No Conflict Check 11/04/11 Discontinued Scripts Levofloxacin* (Levaquin*) 500 Mg Tablet, 500 MG PO DAILY for 7 Days, TAB Prov:DIANA CARLSON [employer] 02/20/16 Prednisone* (Prednisone*) 50 Mg Tablet, 50 MG PO DAILY for 5 Days, TAB Prov:DIANA CARLSON [employer]ER 02/20/16 Guaifenesin-Codeine Phosphate* (Guaifenesin* with Codeine Liq) 120 Ml Liquid, 5 ML PO Q4H for COUGH, #60 ML Prov:DIANA CARLSON NP 02/20/16 Albuterol Sulfate* (Proair HFA*) 8.5 Gm Hfa.aer.ad, 2 PUFF INH Q4H Y for WHEEZING AND SOB, #1 INHALER Prov:DIANA CARLSON NP 02/20/16 Follow-up Plan You should seek medical care at a larger [facility] with a larger urology department for a second opinion Primary Care Provider Grey Stinson Pending Labs Laboratory Tests Test 07/25/17 05:46 07/25/17 05:53 White Blood Count 4.510^3/ul (4.8-10.8) Red Blood Count 3.6110^6/ul (4.20-5.40) Hemoglobin 11.3g/dl (12.0-16.0) Hematocrit 33.5% (37.0-47.0) Mean Corpuscular Volume 92.8fl (82.0-101.0) Mean Corpuscular Hemoglobin 31.3pg (29.0-33.0) Mean Corpuscular Hemoglobin Concent 33.7g/dl (32.0-37.0) Red Cell Distribution Width 13.5% (11.5-14.5) Platelet Count 01565^3/UL (140-415) Mean Platelet Volume 9.3fl (7.4-10.4) Neutrophils % 48.5% (39.0-77.0) Lymphocytes % 42.1% (15.0-51.0) Monocytes % 7.5% (0.0-11.0) Eosinophils % 1.5% (0.0-7.0) Basophils % 0.2% (0.0-2.0) Nucleated Red Blood Cells % 0.0/100WBC (0.0-0.0) Neutrophils # 2.210^3/ul (1.6-7.5) Lymphocytes # 1.910^3/ul (0.8-2.9) Monocytes # 0.310^3/ul (0.3-0.9) Eosinophils # 0.110^3/ul (0.0-0.5) Basophils # 0.010^3/ul (0.0-0.1) Nucleated Red Blood Cells # 0.010^3/ul (0.0-0.0) Sodium Level 146mmol/L (135-144) Potassium Level 3.7mmol/L (3.5-5.1) Chloride Level 108mmol/L (97-110) Carbon Dioxide Level 28mmol/L (21-31) Anion Gap 14 (8-16) Blood Urea Nitrogen 12mg/dl (7-20) Creatinine 0.79mg/dl (0.44-1.00) Glucose Level 86mg/dl (70-220) Calcium Level 8.6mg/dl (8.4-10.2) Phosphorus Level 4.5mg/dl (2.5-4.9) Magnesium Level 2.0mg/dl (1.7-2.5) Total Bilirubin 1.0mg/dl (0.2-1.3) Direct Bilirubin 0.00mg/dl (0.00-0.20) Indirect Bilirubin 1.0mg/dl (0-1.1) Aspartate Amino Transf (AST/SGOT) 16IU/L (15-46) Alanine Aminotransferase (ALT/SGPT) 29IU/L (13-69) Alkaline Phosphatase 72IU/L (42-121) Total Protein 7.0g/dl (6.1-8.1) Albumin 4.0g/dl (3.3-4.9) Globulin 3.00g/dl (1.3-3.2) Albumin/Globulin Ratio 1.33 Triglycerides Level 122mg/dl (0-149) Cholesterol Level 125mg/dl (100-200) LDL Cholesterol, Calculated 64mg/dl HDL Cholesterol 37mg/dl (35-98) Cholesterol/HDL Ratio 3.3RREHANA NOLEN MD Jul 25, 2017 15:18
== END 2017-07-25 13:10 | disposition home or self-care (01) | DRG 872 ==
LOC: E/R 23:34 → MS2 07-23 02:35 → E/R 07-23 03:26
PROVIDERS: ADMIT Family Medicine; ATTEND Family Medicine
DX: A41.9 Sepsis, unspecified organism (principal); Z93.6 Other artificial openings of urinary tract status; I10 Essential (primary) hypertension; N13.2 Hydronephrosis with renal and ureteral calculous obstruction; B37.49 Other urogenital candidiasis; E03.9 Hypothyroidism, unspecified; E78.5 Hyperlipidemia, unspecified
CPT/HCPCS: 36415; 71010; 74000; 76775; 80053; 80061; 81001; 83036; 83690; 83735; 84100; 84439; 84443; 85025; 85610; 85730; 87086; 93005; 96374; 96375; J0696; J1956; J2270; J2405; J7030; J7040

== ENCOUNTER 2017-08-02 12:59 | Emergency (ER) | payer OTHER ==
[~2017-08-02] VITALS: Ht 162.6 cm; Wt 81.0 kg
[~2017-08-02 12:59] MED LIST changes: -ALBU8.5H3 INH; +AMLO-147 PO; +ASPI-664 PO; +ATOR80TA75 PO; +FINA5TAB4 PO; -GUAI118L94 PO; -LEVO500T72 PO; +LORA10TA3 PO; -PRED50TA PO; -SIMV5TAB50 PO; +TAMS0.4C2 PO; +THY15 PO; -[UNRECOGNIZED DRUG - OTHER]
[2017-08-02 13:03] VITALS: Ht 162.6 cm; Wt 81.0 kg
[2017-08-02] MEDS ORDERED: ONDANSETRON 4 MG INJ IV STA (13:21)
[2017-08-02] MEDS ORDERED: morphine 4 MG/ML VIAL IV STA (13:21)
[2017-08-02] MEDS ORDERED: SOD CHLORIDE 0.9% 1,000 ML IV STA (13:21)
--- NOTE | 2017-08-02 14:05 | RADRPT ---
PROCEDURE: Ultrasound Retroperitoneum. CLINICAL INDICATION: Left flank pain, history of kidney stone. TECHNIQUE: Levy scale and color flow sonographic images of the kidneys and retroperitoneum were ob tained. The images were reviewed on a PACS workstation. COMPARISON: July 23, 2017 FINDINGS: The right kidney measures 11.3 cm. The left kidney measures 10.6 cm. The kidneys demonstrate normal echogenicity. Mild left hydronephrosis. Nephrostomy tube is identified in the left kidney. No solid masses or stones are identified. The bladder is filled with a small to moderate amount of urine and has an unremarkable appearance. IMPRESSION: Nephrostomy tube in the left kidney. Mild left hydronephrosis. Etiology is uncertain. If further characterization is needed CT should be considered. Overall appearance is similar to prior exam. RPTAT: AA .Immanuel Sanchez MD, Date Time Electronically viewed and signed by .Immanuel Sanchez MD, on 08/02/2017 14:05 .P/
[2017-08-02 14:06] LABS: EOSINOPHILS # 0.1 10^3/ul (0.0-0.5); EOSINOPHILS % 1.2 % (0.0-7.0); HEMATOCRIT 34.3 % (37.0-47.0); HEMOGLOBIN 11.6 g/dl (12.0-16.0); LYMPHOCYTES # 1.6 10^3/ul (0.8-2.9); LYMPHOCYTES % 38.3 % (15.0-51.0); MEAN CORPUSCULAR HEMOGLOBIN 31.2 pg (29.0-33.0); MEAN CORPUSCULAR HGB CONC 33.8 g/dl (32.0-37.0); MEAN CORPUSCULAR VOLUME 92.2 fl (82.0-101.0); MEAN PLATELET VOLUME 8.8 fl (7.4-10.4); MONOCYTE # 0.3 10^3/ul (0.3-0.9); MONOCYTES % 6.7 % (0.0-11.0); NEUTROPHIL # 2.2 10^3/ul (1.6-7.5); NEUTROPHILS % 53.6 % (39.0-77.0); PLATELET COUNT 173 10^3/UL (140-415); RED BLOOD COUNT 3.72 10^6/ul (4.20-5.40); RED CELL DISTRIBUTION WIDTH 13.4 % (11.5-14.5); WHITE BLOOD COUNT 4.2 10^3/ul (4.8-10.8)
[2017-08-02 14:24] LABS: ALBUMIN 4.6 g/dl (3.3-4.9); ALBUMIN/GLOBULIN RATIO 1.27; BILIRUBIN,INDIRECT 0.8 mg/dl (0-1.1); BILIRUBIN,TOTAL 0.8 mg/dl (0.2-1.3); CALCIUM 9.3 mg/dl (8.4-10.2); CREATININE 0.72 mg/dl (0.44-1.00); TOTAL PROTEIN 8.2 g/dl (6.1-8.1)
[2017-08-02 14:27] VITALS: BP 128/87; PULSE 66; RESP 17
[2017-08-02 14:27] LABS: POTASSIUM 3.9 mmol/L (3.5-5.1)
[2017-08-02 15:17] LABS: ADD UMIC YES; UR ASCORBIC ACID NEGATIVE (NEGATIVE); UR BILIRUBIN (Dip) NEGATIVE (NEGATIVE); UR BLOOD (Dip) 2+ mg/dL (NEGATIVE); UR CLARITY CLEAR (CLEAR); UR COLOR YELLOW (YELLOW); UR GLUCOSE (Dip) NEGATIVE (NEGATIVE); UR KETONES (Dip) NEGATIVE (NEGATIVE); UR LEUKOCYTE ESTERASE (Dip) TRACE Leu/ul (NEGATIVE); UR NITRITE (Dip) NEGATIVE (NEGATIVE); UR RBC 1 /HPF (0-5); UR SPECIFIC GRAVITY (Dip) 1.009 (1.003-1.030); UR TOTAL PROTEIN (Dip) NEGATIVE (NEGATIVE); UR UROBILINOGEN (Dip) NEGATIVE (NEGATIVE)
--- NOTE | 2017-08-02 16:59 | RADRPT ---
PROCEDURE: Right Upper Quadrant Ultrasound. CLINICAL INDICATION: Abdominal pain, elevated LFTs TECHNIQUE: Multiple real-time images were acquired of the patient's right upper quadrant abdomen a nd retroperitoneum utilizing a high resolution transducer. COMPARISON: None FINDINGS: The liver measures 17.2 cm, and demonstrates mildly increased echogenicity. The main portal vein is patent with proper directional flow. There is no intrahepatic biliary ductal dilatation. The extrahe patic common bile duct measures 4 mm. The gallbladder is absent. The visualized pancreas is unremarkable. The right kidney measures 11.2 x 3.8 x 3.9 cm and demonstrates normal echotexture. There is no right renal calculus or hydronephrosis. There is a 1.6 cm simple cyst projecting off the lower pole of the right kidney. The visualized abdominal aorta and IVC are grossly unremarkable. IMPRESSION: Mild hepatomegaly with mild fatty infiltration. The gallbladder is absent. Correlation with surgical history for cholecystectomy is recommended. Nor mal CBD. RPTAT: EE Physician Sukhdeep Date Time Electronically viewed and signed by Physician Sukhdeep on 08/02/2017 16:58 /
[2017-08-02] MEDS ORDERED: NAPR-688 PO (18:14)
[2017-08-02] MEDS ORDERED: HYDR-842 PO (18:19)
--- NOTE | 2017-08-17 17:04 | ERD ---
ER Documentation Chief Complaint Chief Complaint CAME IN DUE TO LEFT SIDED FLANK PAIN WITH HX OF KIDNEY STONES HPI This 61 yo female presents with moderate L flank pain for several days. She has had kidney stones and still has a stent in L kidney from weeks ago. Denies CP, SOB, fever, chills. ROS All systems reviewed and are negative except as per history of present illness. Medications Home Meds Active Scripts Cephalexin* (Keflex*) 500 Mg Capsule, 500 MG PO BID for 14 Days, CAP Prov:WANDER MACIEL MD 08/06/17 Hydroxyzine Hcl* (Atarax*) 25 Mg Tab, 25 MG PO Q6H Y for ITCHING, #14 TAB Prov:CARLO PARHAM DO 08/02/17 Naproxen* (Naproxen*) 500 Mg Tablet, 500 MG PO BID Y for PAIN, #10 TAB Prov:PRASADCARLO DO 08/02/17 Cetirizine Hcl* (Cetirizine Hcl*) 10 Mg Tab.chew, 10 MG PO DAILY, #30 TAB Prov:DIANA CARLSON NP 02/20/16 Reported Medications Atorvastatin* (Atorvastatin*) 80 Mg Tablet, 80 MG PO QHS, #30 TAB 07/23/17 Finasteride* (Finasteride*) 5 Mg Tablet, 5 MG PO DAILY, TAB 07/23/17 Tamsulosin Hcl* (Tamsulosin Hcl*) 0.4 Mg Cap.er.24h, 0.4 MG PO DAILY, CAP 07/23/17 Loratadine* (Loratadine*) 10 Mg Tablet, 10 MG PO DAILY, #30 TAB TAKE 1 TABLET BY MOUTH DAILY NEEDED FOR ALLERGY SYMPTOMS 07/23/17 Aspirin* (Aspirin* EC) 81 Mg Tablet.dr, 81 MG PO DAILY, TAB 07/23/17 Amlodipine Besylate* (Amlodipine Besylate*) 10 Mg Tablet, 10 MG PO DAILY, #30 TAB 07/23/17 Thyroid* ([place] Thyroid*) Unknown Strength Tab, PO DAILY, TAB 07/23/17 Allergies Allergies: Coded Allergies: No Known Allergy (Unverified , 08/06/17) PMhx/Soc History of Surgery: Yes (APPENDECTOMY, CRANIOTOMY(FRONTAL), CHOLECYSTOMY, THYROIDECTOMY, nephrostomy) Anesthesia Reaction: No Hx Neurological Disorder: No Hx Respiratory Disorders: No Hx Cardiac Disorders: Yes ([place], CVA) Hx Psychiatric Problems: No Hx Miscellaneous Medical Probl: Yes (kidney stones , thyroid ) Hx Alcohol Use: No Hx Substance Use: No Hx Tobacco Use: No Smoking Status: Never smoker Physical Exam Physical Exam Const: [] Mild distress Head: Atraumatic Eyes: Normal Conjunctiva ENT: Normal External Ears, Nose and Mouth. Neck: Full range of motion..~ No meningismus. Resp: Clear to auscultation bilaterally Cardio: Regular rate and rhythm, no murmurs Abd: Soft, non tender, non distended. Normal bowel sounds Skin: No petechiae or rashes Back: No midline or flank tenderness Ext: No cyanosis, or edema Neur: Awake and alert and oriented x 3, no focal deficits Psych: Normal Mood and Affect Results 24 hrs Laboratory Tests Test 08/02/17 14:00 White Blood Count 4.210^3/ul Red Blood Count 3.7210^6/ul Hemoglobin 11.6g/dl Hematocrit 34.3% Mean Corpuscular Volume 92.2fl Mean Corpuscular Hemoglobin 31.2pg Mean Corpuscular Hemoglobin Concent 33.8g/dl Red Cell Distribution Width 13.4% Platelet Count 43250^3/UL Mean Platelet Volume 8.8fl Neutrophils % 53.6% Lymphocytes % 38.3% Monocytes % 6.7% Eosinophils % 1.2% Basophils % 0.0% Nucleated Red Blood Cells % 0.0/100WBC Neutrophils # 2.210^3/ul Lymphocytes # 1.610^3/ul Monocytes # 0.310^3/ul Eosinophils # 0.110^3/ul Basophils # 0.010^3/ul Nucleated Red Blood Cells # 0.010^3/ul Urine Color YELLOW Urine Clarity CLEAR Urine pH 5.0 Urine Specific [place] 1.009 Urine Ketones NEGATIVEmg/dL Urine Nitrite NEGATIVEmg/dL Urine Bilirubin NEGATIVEmg/dL Urine Urobilinogen NEGATIVEmg/dL Urine Leukocyte Esterase TRACELeu/ul Urine Microscopic RBC 1/HPF Urine Microscopic WBC 9/HPF Urine Hemoglobin 2+mg/dL Urine Glucose NEGATIVEmg/dL Urine Total Protein NEGATIVEmg/dl Sodium Level 148mmol/L Potassium Level 3.9mmol/L Chloride Level 107mmol/L Carbon Dioxide Level 28mmol/L Anion Gap 17 Blood Urea Nitrogen 11mg/dl Creatinine 0.72mg/dl Glucose Level 87mg/dl Calcium Level 9.3mg/dl Total Bilirubin 0.8mg/dl Direct Bilirubin 0.00mg/dl Indirect Bilirubin 0.8mg/dl Aspartate Amino Transf (AST/SGOT) 74IU/L Alanine Aminotransferase (ALT/SGPT) 376IU/L Alkaline Phosphatase 191IU/L Total Protein 8.2g/dl Albumin 4.6g/dl Globulin 3.60g/dl Albumin/Globulin Ratio 1.27 Lipase 39U/L Current Medications Medications (Trade) Dose Ordered Sig/Renaldo Route PRN Reason Start Time Stop Time Status Last Admin Dose Admin Sodium Chloride (NS) 1,000 ml @ 1,000 mls/hr Q1H STAT IV 08/02/17 13:21 08/02/17 14:20 DC 08/02/17 13:21 Morphine Sulfate (morphine) 4 mg ONCE STAT IV 08/02/17 13:21 08/02/17 13:25 DC Ondansetron HCl (Zofran Inj) 4 mg ONCE STAT IV 08/02/17 13:21 08/02/17 13:25 DC Procedures/MDM Persistent stent in L kidney with stone still in place. She had urologic follow up for removal. Also increased liver enzymes with fatty liver. Pain controlled in ER with single dose of morphine and zofran. Also given liter of NS. Pt also had complained of whole body itching. Going to discharge with atarax and naproxen for pain. Definitive treatment with be stent removal by urologist. Also recommended GI follow up to family for liver findings. Results printed and given to patient. Strict return precautions and PCP and urology f/u. Renal US interp: mild hydronephrosis with Renal stent in good position. RUQ ultrasound: Fatty liver with hepatomegaly, GB ansent. Departure Diagnosis: Primary Impression: Increased liver enzymes Additional Impressions: Abdominal pain Fatty liver Condition: Stable Patient Instructions: Abdominal Pain, Non-Alcoholic Fatty Liver Disease (NAFLD) Additional Instructions: Call the scheduling center for urostomy removal by Dr. Whitten as instructed. CARLO PARHAM DO Aug 17, 2017 17:04
== END 2017-08-02 18:50 | disposition home or self-care (01) ==
LOC: E/R 12:59
DX: R94.5 Abnormal results of liver function studies (principal); K76.0 Fatty (change of) liver, not elsewhere classified; Z79.82 Long term (current) use of aspirin
CPT/HCPCS: 36415; 76705; 76775; 80053; 81001; 83690; 85025; J7030; Z7502

== ENCOUNTER 2017-08-06 08:11 | Emergency (ER) | payer OTHER ==
[~2017-08-06] VITALS: Wt 82.0 kg
[~2017-08-06 08:11] MED LIST changes: +HYDR-842 PO; +NAPR-688 PO
[2017-08-06] MEDS ORDERED: SOD CHLORIDE 0.9% 500 ML IV STA (08:31)
--- NOTE | 2017-08-06 08:44 | ERA ---
ER Documentation Chief Complaint Date/Time DATE: 08/06/17 TIME: 08:40 Chief Complaint left flank pain, fever, states "tube" in kidney removed yesterday HPI This is a 61-year-old female who presents with left flank pain and subjective fever. The patient had a nephrostomy tube removed from the left kidney yesterday. She had a recent hospitalization secondary to an obstructive 5 mm kidney stone status post lithotripsy, nephrostomy tube. The patient denies any nausea or vomiting. She states her pain is well controlled. She denies any cough or shortness of breath, no dysuria urgency or frequency. The patient states that she is taking an antibiotic but it is from [place] and was not prescribed by a physician here in the [place]. ROS All systems reviewed and are negative except as per history of present illness. Medications Home Meds Active Scripts Cephalexin* (Keflex*) 500 Mg Capsule, 500 MG PO BID for 14 Days, CAP Prov:WANDER MACIEL MD 08/06/17 Hydroxyzine Hcl* (Atarax*) 25 Mg Tab, 25 MG PO Q6H Y for ITCHING, #14 TAB Prov:CARLO PARHAM DO 08/02/17 Naproxen* (Naproxen*) 500 Mg Tablet, 500 MG PO BID Y for PAIN, #10 TAB Prov:CARLO PARHAM DO 08/02/17 Cetirizine Hcl* (Cetirizine Hcl*) 10 Mg Tab.chew, 10 MG PO DAILY, #30 TAB Prov:DIANA CARLSON NP 02/20/16 Reported Medications Atorvastatin* (Atorvastatin*) 80 Mg Tablet, 80 MG PO QHS, #30 TAB 07/23/17 Finasteride* (Finasteride*) 5 Mg Tablet, 5 MG PO DAILY, TAB 07/23/17 Tamsulosin Hcl* (Tamsulosin Hcl*) 0.4 Mg Cap.er.24h, 0.4 MG PO DAILY, CAP 07/23/17 Loratadine* (Loratadine*) 10 Mg Tablet, 10 MG PO DAILY, #30 TAB TAKE 1 TABLET BY MOUTH DAILY NEEDED FOR ALLERGY SYMPTOMS 07/23/17 Aspirin* (Aspirin* EC) 81 Mg Tablet.dr, 81 MG PO DAILY, TAB 07/23/17 Amlodipine Besylate* (Amlodipine Besylate*) 10 Mg Tablet, 10 MG PO DAILY, #30 TAB 07/23/17 Thyroid* ([place] Thyroid*) Unknown Strength Tab, PO DAILY, TAB 07/23/17 Allergies Allergies: Coded Allergies: No Known Allergy (Unverified , 08/06/17) PMhx/Soc History of Surgery: Yes (APPENDECTOMY, CRANIOTOMY(FRONTAL), CHOLECYSTOMY, THYROIDECTOMY, nephrostomy) Anesthesia Reaction: No Hx Neurological Disorder: No Hx Respiratory Disorders: No Hx Cardiac Disorders: Yes (CT, CVA) Hx Psychiatric Problems: No Hx Miscellaneous Medical Probl: Yes (kidney stones , thyroid ) Hx Alcohol Use: No Hx Substance Use: No Hx Tobacco Use: No FmHx Family History: No diabetes Physical Exam Vitals Vital Signs Date Time Temp Pulse Resp B/P Pulse Ox O2 Delivery O2 Flow Rate FiO2 08/06/17 08:14 99.6 91 17 132/76 94 Physical Exam General: Well developed, well nourished, no acute distress Head: Normocephalic, atraumatic Eyes: Pupils equally reactive, EOM intact ENT: Moist mucous membranes Neck: Supple, no lymphadenopathy Respiratory: Lungs clear bilaterally, no distress Cardiovascular: RRR, no murmurs, rubs, or gallops Abdominal: Soft, non-tender, non-distended, no peritoneal signs : Deferred MSK: No edema, no unilateral swelling, 5/5 strength Neurologic: Alert and oriented, moving all extremities, normal speech, no focal weakness, no cerebellar signs Skin: Nephrostomy tube site is well-appearing without drainage or discharge Psych: Normal mood Result Diagram: 08/06/17 0845 08/06/17 0845 Results 24 hrs Laboratory Tests Test 08/06/17 08:45 08/06/17 09:00 White Blood Count 6.010^3/ul Red Blood Count 3.5310^6/ul Hemoglobin 11.1g/dl Hematocrit 32.3% Mean Corpuscular Volume 91.5fl Mean Corpuscular Hemoglobin 31.4pg Mean Corpuscular Hemoglobin Concent 34.4g/dl Red Cell Distribution Width 13.2% Platelet Count 18738^3/UL Mean Platelet Volume 8.9fl Neutrophils % 65.2% Lymphocytes % 26.2% Monocytes % 7.1% Eosinophils % 1.2% Basophils % 0.0% Nucleated Red Blood Cells % 0.0/100WBC Neutrophils # 3.910^3/ul Lymphocytes # 1.610^3/ul Monocytes # 0.410^3/ul Eosinophils # 0.110^3/ul Basophils # 0.010^3/ul Nucleated Red Blood Cells # 0.010^3/ul Sodium Level 144mmol/L Potassium Level 3.7mmol/L Chloride Level 107mmol/L Carbon Dioxide Level 28mmol/L Anion Gap 13 Blood Urea Nitrogen 10mg/dl Creatinine 0.66mg/dl Glucose Level 97mg/dl Lactic Acid Level 1.3mmol/L Calcium Level 9.1mg/dl Total Bilirubin 0.9mg/dl Direct Bilirubin 0.00mg/dl Indirect Bilirubin 0.9mg/dl Aspartate Amino Transf (AST/SGOT) 20IU/L Alanine Aminotransferase (ALT/SGPT) 132IU/L Alkaline Phosphatase 134IU/L Total Protein 7.5g/dl Albumin 3.8g/dl Globulin 3.70g/dl Albumin/Globulin Ratio 1.02 Lipase 25U/L Urine Color YELLOW Urine Clarity SLIGHTLY CLOUDY Urine pH 5.0 Urine Specific [place] 1.006 Urine Ketones NEGATIVEmg/dL Urine Nitrite NEGATIVEmg/dL Urine Bilirubin NEGATIVEmg/dL Urine Urobilinogen NEGATIVEmg/dL Urine Leukocyte Esterase 1+Kinsey/ul Urine Microscopic RBC 11/HPF Urine Microscopic WBC 21/HPF Urine Squamous Epithelial Cells FEW/HPF Urine Bacteria FEW/HPF Urine Mucus MODERATE/HPF Urine Hemoglobin 2+mg/dL Urine Glucose NEGATIVEmg/dL Urine Total Protein NEGATIVEmg/dl Current Medications Medications (Trade) Dose Ordered Sig/Renaldo Route PRN Reason Start Time Stop Time Status Last Admin Dose Admin Sodium Chloride (NS) 500 ml @ 500 mls/hr Q1H STAT IV 08/06/17 08:31 08/06/17 09:30 DC 08/06/17 09:23 IV Flush 10 ml 10 ml STK-MED ONCE .ROUTE 08/06/17 08:59 08/06/17 09:00 DC Sodium Chloride (NS) 100 ml @ ud STK-MED ONCE .ROUTE 08/06/17 08:59 08/06/17 09:00 DC Iohexol (Omnipaque 300mg/ ml) 150 ml STK-MED ONCE .ROUTE 08/06/17 08:59 08/06/17 09:00 DC Procedures/MDM EKG, MONITORS, & DIAGNOSTIC IMAGING: CT abdomen and pelvis with contrast: IMPRESSION: 1. Status post removal of left-sided nephrostomy tube with previous nephrostomy tract noted. The left kidney appears to be normal sized. There is mild left perinephric fluid and fatty stranding. However, no free evidence of focal fluid collections. No evidence of urinoma or hematoma. Generalized haziness of the left kidney with prominence of the calyces without freddy hydronephrosis. Cannot exclude the possibility of underlying infection. 2. The right kidney is unremarkable. 3. No evidence of bowel obstruction. No evidence of free fluid or free air. 4. Status post cholecystectomy. RPTAT: [facility] LAB INTERPRETATION: No significant leukocytosis and normal lactic acid, nonspecific transaminitis that is consistent with baseline. Urinalysis with possible contamination versus infection. MEDICAL DECISION MAKING: The patient presents with subjective fever and flank pain status post nephrostomy tube removal. The patient however at this time is not reporting any pain. The family is concerned because the patient has had sepsis in the past and they would like to rule out sepsis at this point. In the ER she is otherwise well-appearing without distress, she has a benign abdominal exam. She is a low-grade temperature at triage of 99. She is otherwise well- appearing. I do believe that it would be reasonable given recent removal of nephrostomy tube to check basic blood work, blood cultures, urinalysis and urine culture as well as CT imaging of the abdomen and pelvis with IV contrast. I will reach out to her urologist, Dr. Mckeon ER COURSE: The patient's laboratory testing is unrevealing other than possible UTI. CT imaging shows no further stone, no evidence of fluid collection. Her pain is well controlled. Based on the urinalysis I believe initiation of antibiotic would be reasonable but the patient does not require IV antibiotics or inpatient hospitalization. I spoke to Dr. Mckeon who states that he is no longer seeing the patient. It appears that the patient requested a second opinion and therefore he does not want to see the patient any longer. The patient was reported to have seen Dr. Adams as an inpatient but he never specifically saw the patient it was only a consultation over the phone with the hospitalist team. Dr. Adams states that he is not caring for this patient. I spoke to him on the phone. I attempted to reach out to the physician, Dr. Robert who removed the nephrostomy tube and no call back at this point. The family was informed to follow-up with the urologist. If it is not Dr. Mckeon needs to be someone else in their insurance pool. I advised him to call the insurance company to schedule an appointment with the urologist. The patient will be started on antibiotics and if has worsening symptoms needs to return to the emergency room for further evaluation. Given that the patient has resolution of the stone there is no further indication for nephrostomy tube. Additionally, the patient can follow-up with Dr. robert who removed the nephrostomy tube. At this time the patient is safe for discharge. I kept the patient and/or family informed of laboratory and diagnostic imaging results throughout the emergency room course. DISPOSITION PLAN: We discussed follow up with the patient's primary care doctor within 24 to 48 hours as needed. We also discussed return to the emergency room for worsening symptoms or worsening condition. Outpatient referral: Dr. robert and urology Discharge Medications: Keflex CONSULTATION: Dr. Mckeon, Dr. Adams, Dr. Robert all called as documented above. Departure Diagnosis: Primary Impression: Left flank pain Additional Impression: Urinary tract infection Qualified Code: N39.0 - Urinary tract infection without hematuria, site unspecified Condition: Stable WANDER MACIEL MD Aug 06, 2017 08:44
[2017-08-06] MEDS ORDERED: SOD CHLORIDE 0.9% 100 ML ONE (08:59)
[2017-08-06] MEDS ORDERED: IOHEXOL 300MG/ML 150 ML BTL ONE (08:59)
[2017-08-06 09:17] LABS: EOSINOPHILS # 0.1 10^3/ul (0.0-0.5); EOSINOPHILS % 1.2 % (0.0-7.0); HEMATOCRIT 32.3 % (37.0-47.0); HEMOGLOBIN 11.1 g/dl (12.0-16.0); LYMPHOCYTES # 1.6 10^3/ul (0.8-2.9); LYMPHOCYTES % 26.2 % (15.0-51.0); MEAN CORPUSCULAR HEMOGLOBIN 31.4 pg (29.0-33.0); MEAN CORPUSCULAR HGB CONC 34.4 g/dl (32.0-37.0); MEAN CORPUSCULAR VOLUME 91.5 fl (82.0-101.0); MEAN PLATELET VOLUME 8.9 fl (7.4-10.4); MONOCYTE # 0.4 10^3/ul (0.3-0.9); MONOCYTES % 7.1 % (0.0-11.0); NEUTROPHIL # 3.9 10^3/ul (1.6-7.5); NEUTROPHILS % 65.2 % (39.0-77.0); PLATELET COUNT 189 10^3/UL (140-415); RED BLOOD COUNT 3.53 10^6/ul (4.20-5.40); RED CELL DISTRIBUTION WIDTH 13.2 % (11.5-14.5)
[2017-08-06 09:18] LABS: ADD UMIC YES; UR ASCORBIC ACID NEGATIVE (NEGATIVE); UR BACTERIA FEW /HPF (NONE SEEN); UR BILIRUBIN (Dip) NEGATIVE (NEGATIVE); UR BLOOD (Dip) 2+ mg/dL (NEGATIVE); UR CLARITY SLIGHTLY CLOUDY (CLEAR); UR COLOR YELLOW (YELLOW); UR GLUCOSE (Dip) NEGATIVE (NEGATIVE); UR KETONES (Dip) NEGATIVE (NEGATIVE); UR LEUKOCYTE ESTERASE (Dip) 1+ Leu/ul (NEGATIVE); UR MUCUS MODERATE /HPF (NONE SEEN); UR NITRITE (Dip) NEGATIVE (NEGATIVE); UR RBC 11 /HPF (0-5); UR SPECIFIC GRAVITY (Dip) 1.006 (1.003-1.030); UR SQUAMOUS EPITHELIAL CELL FEW /HPF (FEW); UR TOTAL PROTEIN (Dip) NEGATIVE (NEGATIVE); UR UROBILINOGEN (Dip) NEGATIVE (NEGATIVE)
[2017-08-06 09:34] LABS: ALBUMIN 3.8 g/dl (3.3-4.9); ALBUMIN/GLOBULIN RATIO 1.02; BILIRUBIN,INDIRECT 0.9 mg/dl (0-1.1); BILIRUBIN,TOTAL 0.9 mg/dl (0.2-1.3); CALCIUM 9.1 mg/dl (8.4-10.2); CREATININE 0.66 mg/dl (0.44-1.00); POTASSIUM 3.7 mmol/L (3.5-5.1); TOTAL PROTEIN 7.5 g/dl (6.1-8.1)
--- NOTE | 2017-08-06 09:44 | RADRPT ---
PROCEDURE: CT ABDOMEN AND PELVIS WITH IV CONTRAST. CLINICAL INDICATION: Abdominal pain. Recent removal of left nephrostomy tube. TECHNIQUE: CT scan of the abdomen and pelvis without contrast was performed on a multidetector hig h-resolution CT scanner following the use of IV contrast. 100 cc Omnipaque-300 was administered. Cor onal and sagittal reformatted images were obtained from the axial source images. Images were reviewe d on a high-resolution PACS workstation. The total exam CTDI equals 19.3 mGy and the total exam DLP equals 1151 mGy-cm. One or more of the following dose reduction techniques were used: Automated exposure control. Adjustment of the mA and/or kV according to patient size. Use of iterative reconstruction technique. COMPARISON: None FINDINGS: CT abdomen: Bibasilar atelectasis noted. The heart size is enlarged. There is no significant pericardial effusio n. Hepatic morphology is within limits. Small cyst is noted within the right lobe liver, measuring 8.6 mm. No gross masses or lesions. Status post cholecystectomy. No intrahepatic or extrahepatic biliary dilatation. The spleen and pancreas are within normal limits. Both adrenal glands are within normal limits. Both kidneys are and normal anatomic position. There is left perinephric fatty stranding and small a mount of perinephric fluid. A percutaneous nephrostomy tube tract is noted. No definitive evidence o f urinoma or focal fluid collections. There is generalized haziness of the left kidney, and the amrik gagandeep are mildly prominent without evidence of freddy hydronephrosis. The right kidney is unremarkable. The visualized GI tract demonstrate normal caliber loops of small and large bowel. No evidence of gena wel obstruction. The aorta is unremarkable. There is retroperitoneal lymphadenopathy. CT pelvis: The bladder is within normal limits. The rectosigmoid colon is within normal limits. No significant free fluid. No significant pelvic lymphadenopathy. The visualized osseous structures appear to be with normal limits. IMPRESSION: 1. Status post removal of left-sided nephrostomy tube with previous nephrostomy tract noted. The lef t kidney appears to be normal sized. There is mild left perinephric fluid and fatty stranding. Howev er, no free evidence of focal fluid collections. No evidence of urinoma or hematoma. Generalized haz iness of the left kidney with prominence of the calyces without freddy hydronephrosis. Cannot exclude the possibility of underlying infection. 2. The right kidney is unremarkable. 3. No evidence of bowel obstruction. No evidence of free fluid or free air. 4. Status post cholecystectomy. RPTAT: [facility] Izabela Stallings Physician Date Time Electronically viewed and signed by Izabela Stallings Physician on 08/06/2017 09:43 DEMARCUS/
[2017-08-06] MEDS ORDERED: CEPH-443 PO (10:32)
[2017-08-06 11:03] VITALS: BP 126/82; PULSE 77; RESP 18; TEMP 97.9
== END 2017-08-06 11:06 | disposition home or self-care (01) ==
LOC: E/R 08:11
DX: N39.0 Urinary tract infection, site not specified (principal); Z79.82 Long term (current) use of aspirin
CPT/HCPCS: 36415; 74177; 80053; 81001; 83605; 83690; 85025; 87040; 87086; 96360; J7040; Q9967; Z7502; Z7610